=== PATIENT | male | born 1955 | race Caucasian/White ===

== ENCOUNTER → 2020-07-14 | Outpatient (CLI) | payer MEDICARE, SELFPAY | END | disposition home or self-care (01) | LOC: LABSPEC 12:44 | PROVIDERS: PCP Nurse Practitioner Family; Referring Provider Internal Medicine Pulmonary Disease; Visit Provider Internal Medicine Pulmonary Disease | DX: J44.9 Chronic obstructive pulmonary disease, unspecified (principal) | CPT/HCPCS: 87015; 87070; 87077; 87116; 87186; 87205; 87206 ==

== ENCOUNTER → 2020-07-15 09:22 | Outpatient (CLI) | payer MEDICARE, SELFPAY ==
[2015-07-28 09:43] VITALS: BMI 34.4
== END ==
LOC: LAB 09:24 → LABSPEC 09:26
PROVIDERS: PCP Nurse Practitioner Family; Referring Provider Internal Medicine Pulmonary Disease; Visit Provider Internal Medicine Pulmonary Disease
DX: J44.9 Chronic obstructive pulmonary disease, unspecified (principal)
CPT/HCPCS: 87015; 87116; 87206

== ENCOUNTER → 2020-07-16 | Outpatient (CLI) | payer MEDICARE, SELFPAY ==
[2015-07-28 09:43] VITALS: BMI 34.4
== END | disposition home or self-care (01) ==
LOC: LAB.FUTURE 10:14 → LABSPEC 10:16
PROVIDERS: PCP Nurse Practitioner Family; Referring Provider Internal Medicine Pulmonary Disease; Visit Provider Internal Medicine Pulmonary Disease
DX: J44.9 Chronic obstructive pulmonary disease, unspecified (principal)
CPT/HCPCS: 87015; 87116; 87206